=== PATIENT | male | born 1985 ===

== ENCOUNTER 2017-11-05 02:55 | Inpatient (IN) ==
[2017-11-05] MEDS ORDERED: ONDANSETRON 4 MG/2 ML VIAL IV STA (03:07)
[2017-11-05] MEDS ORDERED: MORPHINE 2 MG/1 ML SYRINGE IV STA (03:07)
[2017-11-05] MEDS ORDERED: MORPHINE 2 MG/1 ML SYRINGE ONE (03:20)
[2017-11-05] MEDS ORDERED: ONDANSETRON 4 MG/2 ML VIAL ONE (03:20)
[2017-11-05 03:33] LABS: Basophils # 0.1 10*3/uL (0.0-0.2); Basophils % 0.5 % (0.0-0.8); Eosinophils # 0.1 10*3/uL (0.0-0.87); Eosinophils % 0.6 % (0.00-10.9); Hematocrit 47.6 VOL% (42.0-52.0); Hemoglobin 16.1 GM/DL (14.0-18.0); Immature Granulocytes % 0.7 %; Immature Granulocytes Absolute 0.07 #; Lymphocytes # 1.8 10*3/uL (1.4-4.0); Lymphocytes % 18.4 % (21.2-54.2); Mean Corpuscular HGB Conc 33.8 GM/DL (32-36); Mean Corpuscular Hemoglobin 31 PG (27-34); Mean Corpuscular Volume 90.7 FL (87-102); Mean Platelet Volume 8.2 FL (9.6-12.0); Monocytes # 0.6 10*3/uL (0.11-0.8); Neutrophils # 7.4 10*3/uL (1.4-7.4); Neutrophils % 73.8 % (38.7-73.9); Platelet Count 404 T/CUMM (130-400); Red Blood Count 5.25 MC/CUMM (3.8-5.5); Red Cell Distribution Width 13.8 % (9.3-17.3)
[2017-11-05 03:46] LABS: Alanine Aminotransferase 33 U/L (16-61); Alkaline Phosphatase 128 U/L (45-117); Aspartate Amino Transferase 34 U/L (0-37); Bilirubin,Total < 0.39 MG/DL (0.2-1.0); Blood Urea Nitrogen 6 MG/DL (7-18); Calcium 8.2 MG/DL (8.5-10.1); Glucose 115 MG/DL (74-106); Osmolality,Calculated 273.7 MOS/KG (273-304); Potassium 3.9 MMOL/L (3.5-5.1); Sodium 138 MMOL/L (136-145); Total Protein 7.4 G/DL (6.4-8.3)
[2017-11-05] MEDS ORDERED: PROPOFOL 200 MG/20 ML VIAL IV STA (05:25)
[2017-11-05] MEDS ORDERED: PROPOFOL 200 MG/20 ML VIAL IV ONE (05:27)
[2017-11-05 05:30] LABS: Apearance,Urine CLEAR (Clear); Bilirubin,Urine Negative (Negative); Blood, Urine Small mg/dL (Negative); Glucose,Urine (UA) Negative (Negative); Ketones,Urine Negative (Negative); Nitrite,Urine Negative (Negative); Protein,Urine Negative; Urine Color Straw (Yellow); Urine Specific Gravity 1.002 (1.001-1.035); Urine Urobilinogen < 2.0 EU/DL (0.2-1.0); WBC,Urine <1 /HPF (0-6)
[2017-11-05] MEDS ORDERED: MORPHINE 2 MG/1 ML SYRINGE IV PRN (06:06)
[2017-11-05] MEDS ORDERED: MAGNESIUM HYDROXIDE SUSP 30 ML UDCUP PO PRN (06:06)
[2017-11-05] MEDS ORDERED: LACTATED RINGERS 1,000 ML IV SCH (06:30)
[2017-11-06] MEDS ORDERED: FONDAPARINUX 2.5 MG/0.5 ML SYRINGE SUBCUT SCH (06:30)
[2017-11-06 06:50] LABS: Basophils % 0.2 % (0.0-0.8); Eosinophils % 0.2 % (0.00-10.9); Hematocrit 46.9 VOL% (42.0-52.0); Hemoglobin 15.7 GM/DL (14.0-18.0); Immature Granulocytes % 0.5 %; Immature Granulocytes Absolute 0.05 #; Lymphocytes # 1.5 10*3/uL (1.4-4.0); Lymphocytes % 15.6 % (21.2-54.2); Mean Corpuscular HGB Conc 33.5 GM/DL (32-36); Mean Corpuscular Hemoglobin 31 PG (27-34); Mean Corpuscular Volume 91.1 FL (87-102); Mean Platelet Volume 8.8 FL (9.6-12.0); Monocytes # 1.2 10*3/uL (0.11-0.8); Monocytes % 12.1 % (1.7-12.7); Neutrophils # 6.8 10*3/uL (1.4-7.4); Neutrophils % 71.4 % (38.7-73.9); Platelet Count 394 T/CUMM (130-400); Red Blood Count 5.15 MC/CUMM (3.8-5.5); White Blood Count 9.5 T/CUMM (4-12)
[2017-11-06 07:16] LABS: Calcium 9.2 MG/DL (8.5-10.1); Osmolality,Calculated 270.8 MOS/KG (273-304); Potassium 4.3 MMOL/L (3.5-5.1)
[2017-11-06 12:31] VITALS: BP 143/81
== END 2017-11-06 12:40 | disposition home or self-care (01) | DRG 538 ==
LOC: EDUNIT# → EDBD → N.ED 02:55 → N.EDINP 06:06 → N.3E 06:51
PROVIDERS: ADMIT Orthopaedic Surgery; ATTEND Orthopaedic Surgery